=== PATIENT | female | born 1995 | race Caucasian/White ===

== ENCOUNTER 2021-10-21 11:59 | Emergency (ER) | payer OTHER, BC ==
[~2021-10-21] VITALS: Ht 157.5 cm; Wt 97.7 kg
[2021-10-21 12:18] VITALS: BP 124/70
--- NOTE | 2021-10-21 12:24 | NUR ---
PT AMB TO BED 4.
--- NOTE | 2021-10-21 13:20 | NUR ---
26/F PRESENTS TO ED WITH C/O URINARY FREQUENCY AND URINARY DRIBBLING. PATIENT REPORTS SYMPTOMS HAVE BEEN WORSENING OVER THE PAST MONTH, REPORTS UNABLE TO SEE HER PCP DUE TO DRUG PROGRAM SHE CURRENTLY IS IN. DENIES DYSURIA, HEMATURIA OR LOWER BACK PAIN, DENIES N/V/D.
[2021-10-21] MEDS ORDERED: OXYB5TAB26 PO (13:27)
[2021-10-21] MEDS ORDERED: NITR100C7 PO (13:27)
[2021-10-21] MEDS ORDERED: CEPH-588 PO (13:31)
[2021-10-21 14:05] VITALS: BP 124/70
--- NOTE | 2021-10-21 14:05 | NUR ---
Patient discharged with v/s stable. Written and verbal after care instructions ABOUT DYSURIA AND URINARY FREQUENCY given and explained. Patient alert, oriented and verbalized understanding of instructions. Ambulatory with steady gait. All questions addressed prior to discharge. ID band removed. Patient advised to follow up with PMD. Rx of KEFLEX AND OXYBUTYNIN CHLORIDE given. Patient educated on indication of medication including possible reaction and side effects. Opportunity to ask questions provided and answered.
== END 2021-10-21 14:05 | disposition home or self-care (01) ==
LOC: MED 11:59
DX: N39.0 Urinary tract infection, site not specified (principal); Z79.899 Other long term (current) drug therapy; Z79.2 Long term (current) use of antibiotics
CPT/HCPCS: 81002; 81025; 99283; 99284

== ENCOUNTER 2022-01-20 22:09 | Emergency (ER) | payer BC, OTHER ==
[~2022-01-20] VITALS: Ht 157.5 cm; Wt 86.6 kg
[~2022-01-20 22:09] MED LIST: CEPH-588 PO; OXYB5TAB26 PO
[2022-01-20 22:22] VITALS: BP 138/82
--- NOTE | 2022-01-20 22:26 | NUR ---
PT TO LOBBY.
--- NOTE | 2022-01-20 22:26 | NUR ---
PT INSTRUCTED TO WASH EYES OVER SINK FOR ANOTHER 10MINS.
[2022-01-20] MEDS ORDERED: TETRACAINE 1% 2 ML AMP INJ ONE (23:45)
[2022-01-20] MEDS ORDERED: FLUORESCEIN OPTH STRIP 1 MG OP ONE (23:45)
--- NOTE | 2022-01-20 23:46 | NUR ---
PT TO BED 12
--- NOTE | 2022-01-21 00:12 | NUR ---
26 Y/O FEAMLE BIBS FROM HOME, C/O 5/10 EYE IRRIATION X7PM S/P BLEACH IN EYE FROM WORK WELL ON FACE. REPORTS BLURRY VISION. STATES SHE RINSED EYES AND FACE FOR ABOUT 5-10MINS. LEFT EYE 20/30 RT EYE 20/50. A/OX4, UNLABORED BREATHING, AMBULATORY. NO REES VISIBLE. HX:ASTHMA NKA
--- NOTE | 2022-01-21 01:00 | NUR ---
ERMD AT BEDSIDE EXAMINING PT
[2022-01-21] MEDS ORDERED: TOBR5SOL17 OP (01:33)
[2022-01-21] MEDS ORDERED: ALBU0.0912 IH (02:04)
[2022-01-21 02:07] VITALS: BP 130/74
--- NOTE | 2022-01-21 02:09 | NUR ---
Patient discharged with v/s stable. Written and verbal after care instructions given and explained. Patient alert, oriented and verbalized understanding of instructions. Ambulatory with steady gait. All questions addressed prior to discharge. ID band removed. Patient advised to follow up with PMD. Rx of ALBUTEROL AND TOBRAMYCIN given. Patient educated on indication of medication including possible reaction and side effects. Opportunity to ask questions provided and answered. VSS, A/OX4, UNLABORED BREATHING, AMBULATORY, AND CALM DEMEANOR.
== END 2022-01-21 02:09 | disposition home or self-care (01) ==
LOC: MED 22:09
DX: H10.213 Acute toxic conjunctivitis, bilateral (principal); Z79.899 Other long term (current) drug therapy
CPT/HCPCS: 96372; 99283; J3490

== ENCOUNTER 2022-02-08 19:33 | Emergency (ER) | payer BC, OTHER ==
[~2022-02-08] VITALS: Ht 157.5 cm; Wt 87.1 kg
[~2022-02-08 19:33] MED LIST changes: +ALBU0.0912 IH; +TOBR5SOL17 OP
[2022-02-08 19:42] VITALS: BP 136/71
--- NOTE | 2022-02-08 22:40 | NUR ---
SEEN AND EXAMINED BY LOVE
[2022-02-08] MEDS: KETOROLAC 30 MG/ML VIAL IM ONE (22:45)
[2022-02-08] MEDS ORDERED: ACET-10509 PO (22:46)
[2022-02-08] MEDS ORDERED: ALBU0.0912 IH (22:46)
[2022-02-08 23:40] VITALS: BP 119/80
--- NOTE | 2022-02-08 23:40 | NUR ---
Patient discharged with v/s stable. Written and verbal after care instructions given and explained. Patient alert, oriented and verbalized understanding of instructions. Ambulatory with steady gait. All questions addressed prior to discharge. ID band removed. Patient advised to follow up with PMD. Rx of TYLENOL, PROVENTIL given. Patient educated on indication of medication including possible reaction and side effects. Opportunity to ask questions provided and answered.
== END 2022-02-08 23:40 | disposition home or self-care (01) ==
LOC: MED 19:33
DX: J06.9 Acute upper respiratory infection, unspecified (principal); R51.9 Headache, unspecified; F17.210 Nicotine dependence, cigarettes, uncomplicated; Z79.899 Other long term (current) drug therapy
CPT/HCPCS: 71045; 99283

== ENCOUNTER 2022-05-27 08:27 | Emergency (ER) | payer BC, MEDICAID ==
[~2022-05-27] VITALS: Ht 157.5 cm; Wt 88.5 kg
[~2022-05-27 08:27] MED LIST changes: +ACET-10509 PO
[2022-05-27 08:33] VITALS: BP 122/79
--- NOTE | 2022-05-27 08:33 | NUR ---
PT AMBULATED TO BED 3. URINE COLLECTED
[2022-05-27] MEDS ORDERED: KETOROLAC 60 MG/2 ML VIAL IM ONE (08:55)
[2022-05-27] MEDS ORDERED: ONDANSETRON 4 MG ODT PO ONE (08:55)
[2022-05-27] MEDS ORDERED: IBUP-2213 PO (09:12)
[2022-05-27] MEDS ORDERED: ONDA8TAB87 PO (09:12)
[2022-05-27 09:36] VITALS: BP 129/80
--- NOTE | 2022-05-27 09:43 | NUR ---
Patient discharged with v/s stable. Written and verbal after care instructions given and explained. Patient verbalized understanding. Ambulatory with steady gait. All questions addressed prior to discharge. Advised to follow up with PMD.
== END 2022-05-27 09:32 | disposition home or self-care (01) ==
LOC: MED 08:27
DX: R10.13 Epigastric pain (principal); R19.7 Diarrhea, unspecified
CPT/HCPCS: 81025; 96372; 99283; J1885; Q0162

== ENCOUNTER 2022-07-22 14:34 | Emergency (ER) | payer BC, MEDICAID ==
[~2022-07-22] VITALS: Ht 157.5 cm; Wt 90.7 kg
[~2022-07-22 14:34] MED LIST changes: +IBUP-2213 PO; +ONDA8TAB87 PO
[2022-07-22 15:05] VITALS: BP 128/68
--- NOTE | 2022-07-22 15:07 | NUR ---
PT SWABBED FOR COVID, FLU, AND STREP
--- NOTE | 2022-07-22 15:37 | NUR ---
27/F WALKED IN C/O SORE THROAT AND COUGH ONSET 1 WK. DENIES FEVER. AFEBRILE AT TRIAGE. PMH: ASTHMA
[2022-07-22] MEDS ORDERED: IBUP-2213 PO (15:50)
[2022-07-22] MEDS ORDERED: PROM118S5 PO (15:50)
== END 2022-07-22 16:10 | disposition home or self-care (01) ==
LOC: MED 14:34
DX: J02.9 Acute pharyngitis, unspecified (principal); Z20.822 Contact with and (suspected) exposure to COVID-19; J45.909 Unspecified asthma, uncomplicated; Z79.899 Other long term (current) drug therapy; Z79.1 Long term (current) use of non-steroidal anti-inflammatories (NSAID); Z79.2 Long term (current) use of antibiotics
CPT/HCPCS: 87081; 99283

== ENCOUNTER 2023-02-14 15:58 | Emergency (ER) | payer BC, OTHER ==
[~2023-02-14] VITALS: Ht 157.5 cm; Wt 99.6 kg
[~2023-02-14 15:58] MED LIST changes: +PROM118S5 PO; +TOBR5DRO10 OP; -TOBR5SOL17 OP
[2023-02-14 16:06] VITALS: BP 136/69; PULSE 86; RESP 20; TEMP 97.8; O2SAT 98
[2023-02-14] MEDS ORDERED: METOCLOPRAMIDE 10 MG/2 ML INJ VIAL IVP ONE (17:30)
[2023-02-14] MEDS ORDERED: NACL 0.9% 1,000 ML IV ONE (17:30)
[2023-02-14 18:40] LABS: ANION GAP 13.8 (8-16); CALCIUM 7.8 mg/dL (8.5-10.1); CARBON DIOXIDE 23.7 mmol/L (21-32); CREATININE 0.6 mg/dL (0.6-1.3); POTASSIUM 3.5 mmol/L (3.5-5.1)
[2023-02-14 18:51] LABS: BASOPHILS % (AUTO) 0.3 % (0.0-2.0); EOSINOPHILS # (AUTO) 0.3 K/uL (0-0.4); EOSINOPHILS % (AUTO) 3.6 % (0.0-4.0); HEMATOCRIT 35.2 % (36-48); LYMPHOCYTES # (AUTO) 3.1 K/uL (2.5-16.5); LYMPHOCYTES % (AUTO) 36.5 % (20.5-51.1); MEAN CORPUSCULAR HEMOGLOBIN 29 pg (27-31); MEAN CORPUSCULAR HGB CONC 34 g/dL (33-37); MEAN CORPUSCULAR VOLUME 85.9 fL (80-94); MONOCYTES # (AUTO) 0.5 K/uL (0.8-1.0); MONOCYTES % (AUTO) 6.3 % (1.7-9.3); NEUTROPHILS # (AUTO) 4.5 K/uL (1.8-7.7); NEUTROPHILS % (AUTO) 53.3 % (42.2-75.2); PLATELET COUNT (AUTO) 278 K/uL (140-450); RED CELL DISTRIBUTION WIDTH 13.7 % (11.6-13.7); WHITE BLOOD COUNT (AUTO) 8.5 K/uL (4.8-10.8)
[2023-02-14] MEDS ORDERED: ONDA-188 SL (20:05)
[2023-02-14 20:25] LABS: APPEARANCE,URINE CLEAR (CLEAR); BILIRUBIN,URINE NEGATIVE (NEGATIVE); BLOOD, URINE NEGATIVE (NEGATIVE); LEUKOCYTE ESTERASE ,URINE NEGATIVE (NEGATIVE); NITRITE, URINE NEGATIVE (NEGATIVE); PH,URINE 5.5 (5.0-9.0); PROTEIN,URINE NEGATIVE (NEGATIVE); UGLUCOSE NEGATIVE (NEGATIVE); UROBILINOGEN,URINE 0.2 EU/dL (0.2 - 1)
[2023-02-14 20:26] LABS: COLOR,URINE STRAW (YELLOW)
[2023-02-14 21:26] VITALS: BP 130/70; PULSE 80; RESP 16; TEMP 98; O2SAT 99
== END 2023-02-14 21:26 | disposition home or self-care (01) ==
LOC: MED 15:58
DX: O26.891 Other specified pregnancy related conditions, first trimester (principal); R11.2 Nausea with vomiting, unspecified; Z3A.11 11 weeks gestation of pregnancy
CPT/HCPCS: 36415; 80048; 81003; 81025; 85025; 96361; 96374; 99284; J2765; J7030

== ENCOUNTER 2023-03-31 19:37 | Emergency (ER) | payer BC ==
[~2023-03-31] VITALS: Ht 157.5 cm; Wt 100.7 kg
[~2023-03-31 19:37] MED LIST changes: +ONDA-188 SL
[2023-03-31 19:45] VITALS: BP 137/87; PULSE 89; RESP 18; TEMP 97.8; O2SAT 96
[2023-03-31 20:26] LABS: BASOPHILS % (AUTO) 0.4 % (0.0-2.0); EOSINOPHILS # (AUTO) 0.2 K/uL (0-0.4); EOSINOPHILS % (AUTO) 1.8 % (0.0-4.0); HEMATOCRIT 36.3 % (36-48); HEMOGLOBIN 12.3 g/dL (12.0-16.0); LYMPHOCYTES # (AUTO) 3.3 K/uL (2.5-16.5); LYMPHOCYTES % (AUTO) 35.5 % (20.5-51.1); MEAN CORPUSCULAR HEMOGLOBIN 29 pg (27-31); MEAN CORPUSCULAR HGB CONC 34 g/dL (33-37); MEAN CORPUSCULAR VOLUME 84.8 fL (80-94); MONOCYTES # (AUTO) 0.5 K/uL (0.8-1.0); MONOCYTES % (AUTO) 5.6 % (1.7-9.3); NEUTROPHILS # (AUTO) 5.3 K/uL (1.8-7.7); NEUTROPHILS % (AUTO) 56.7 % (42.2-75.2); PLATELET COUNT (AUTO) 318 K/uL (140-450); RED BLOOD CELL COUNT(AUTO) 4.28 MIL/uL (4.20-5.40); RED CELL DISTRIBUTION WIDTH 13.6 % (11.6-13.7); WHITE BLOOD COUNT (AUTO) 9.4 K/uL (4.8-10.8)
[2023-03-31 20:28] LABS: APPEARANCE,URINE CLOUDY (CLEAR); BILIRUBIN,URINE NEGATIVE (NEGATIVE); BLOOD, URINE 2+ (NEGATIVE); COLOR,URINE YELLOW (YELLOW); LEUKOCYTE ESTERASE ,URINE 1+ (NEGATIVE); NITRITE, URINE NEGATIVE (NEGATIVE); PROTEIN,URINE 1+ (NEGATIVE); UGLUCOSE NEGATIVE (NEGATIVE)
[2023-03-31 20:34] LABS: BACTERIA,URINE 2+ /HPF (None Seen); MUCUS,URINE 2+ /LPF (None Seen); RBC,URINE 11-20 (MOD) /HPF (0-5); SQUAMOUS EPITHELIAL CELL,UR 20-50 /LPF (0-3 (FEW)); TRICHOMONAS,URINE None Seen /HPF (None Seen); WBC,URINE 16-25 (MOD) /HPF (0-5); YEAST,URINE None Seen /HPF (None Seen)
[2023-03-31 20:39] LABS: ALBUMIN 2.7 g/dL (3.4-5.0); ANION GAP 10.4 (8-16); CALCIUM 8.2 mg/dL (8.5-10.1); CARBON DIOXIDE 26.9 mmol/L (21-32); CREATININE 0.6 mg/dL (0.6-1.3); POTASSIUM 3.3 mmol/L (3.5-5.1); TOTAL BILIRUBIN 0.2 mg/dL (0.0-1.0); TOTAL PROTEIN, SERUM 6.6 g/dL (6.4-8.2)
[2023-03-31] MEDS ORDERED: NITR100C7 PO (22:13)
[2023-03-31] MEDS ORDERED: POTASSIUM CHLORIDE 10 MEQ TABER PO ONE (22:15)
== END 2023-03-31 22:17 | disposition home or self-care (01) ==
LOC: MED 19:37
DX: O20.0 Threatened abortion (principal); O23.42 Unspecified infection of urinary tract in pregnancy, second trimester; O99.282 Endocrine, nutritional and metabolic diseases complicating pregnancy, second trimester; E87.6 Hypokalemia; E88.09 Other disorders of plasma-protein metabolism, not elsewhere classified; J45.909 Unspecified asthma, uncomplicated; Z79.899 Other long term (current) drug therapy; Z79.2 Long term (current) use of antibiotics; Z79.1 Long term (current) use of non-steroidal anti-inflammatories (NSAID); Z3A.16 16 weeks gestation of pregnancy
CPT/HCPCS: 36415; 76805; 80053; 81001; 84702; 85025; 86886; 86900; 86901; 87086; 99284

== ENCOUNTER 2023-04-14 23:50 | Emergency (ER) | payer BC, MEDICAID ==
[~2023-04-14] VITALS: Ht 157.5 cm; Wt 99.8 kg
[~2023-04-14 23:50] MED LIST changes: +NITR100C7 PO
[2023-04-15 00:06] VITALS: BP 124/83; PULSE 128; RESP 16; TEMP 97.2; O2SAT 97
[2023-04-15] MEDS ORDERED: predniSONE 20 MG TAB PO ONE (02:40)
[2023-04-15] MEDS ORDERED: ALBUTEROL SULFATE/IPRATROPIU 3 ML SOL IH ONE (02:40)
[2023-04-15 03:08] VITALS: RESP 18; O2SAT 98
[2023-04-15] MEDS ORDERED: PRED20TA5 PO (04:32)
[2023-04-15] MEDS ORDERED: LORA10TA19 PO (04:32)
[2023-04-15] MEDS ORDERED: ALBU0.0912 IH (04:32)
[2023-04-15 04:40] VITALS: BP 122/83; PULSE 97; RESP 18; TEMP 97.2; O2SAT 98
== END 2023-04-15 04:40 | disposition home or self-care (01) ==
LOC: MED 23:50
DX: O99.512 Diseases of the respiratory system complicating pregnancy, second trimester (principal); J06.9 Acute upper respiratory infection, unspecified; J45.901 Unspecified asthma with (acute) exacerbation; Z3A.19 19 weeks gestation of pregnancy
CPT/HCPCS: 71045; 94640; 99284; J7512